=== PATIENT | female | born 1995 | race Caucasian/White ===

== ENCOUNTER → 2018-02-22 | Outpatient (CLI) | payer OTHER ==
[2018-02-22 16:00] LABS: DHEA Sulfate 478.9 ug/dL (26.0-430.0); Progesterone 1.3 ng/mL
[2018-02-22 16:03] LABS: Insulin Level 12.7 mIU/mL (3.0-25.0); Vitamin D 25 Hydroxy 68.4 ng/mL (30.0-100.0)
[2018-02-22 16:08] LABS: C Reactive Protein, High Sens 0.27 mg/L (0.000-3.000)
[2018-02-23 03:20] LABS: Albumin 4.6 g/dL (3.80-4.90); Albumin/Globulin Ratio 2.42 (1.20-2.10); Anion Gap 7.8 mmol/L (4.00-12.00); Calcium 9.5 mg/dL (8.7-10.3); Carbon Dioxide 27.2 mmol/L (21.6-31.8); Globulin 1.9 g/dL (1.6-3.3); LDL Cholesterol,Calculated 70.6 mg/dL (0.0-131.0); Potassium 4.1 mmol/L (3.5-5.5); Total Bilirubin 0.7 mg/dL (0.2-1.2); Total Protein 6.5 g/dL (6.2-8.2); VLDL Calculation 25.4 mg/dL (5.00-40.00)
== END ==
LOC: LABWHC1 09:43
PROVIDERS: ATTEND Specialist
DX: D50.9 Iron deficiency anemia, unspecified (principal); E06.3 Autoimmune thyroiditis; D51.9 Vitamin B12 deficiency anemia, unspecified; E04.9 Nontoxic goiter, unspecified; E34.9 Endocrine disorder, unspecified; G44.009 Cluster headache syndrome, unspecified, not intractable; E78.1 Pure hyperglyceridemia; E27.40 Unspecified adrenocortical insufficiency; E03.9 Hypothyroidism, unspecified; E88.81 Metabolic syndrome and other insulin resistance; K58.0 Irritable bowel syndrome with diarrhea; K90.49 Malabsorption due to intolerance, not elsewhere classified; N92.6 Irregular menstruation, unspecified; E28.2 Polycystic ovarian syndrome; E07.9 Disorder of thyroid, unspecified; E55.9 Vitamin D deficiency, unspecified; R63.5 Abnormal weight gain; R11.2 Nausea with vomiting, unspecified; R53.83 Other fatigue; R79.9 Abnormal finding of blood chemistry, unspecified; R79.82 Elevated C-reactive protein (CRP); R19.7 Diarrhea, unspecified; T78.1XXA Other adverse food reactions, not elsewhere classified, initial encounter; R10.9 Unspecified abdominal pain; R10.13 Epigastric pain; Z79.01 Long term (current) use of anticoagulants
CPT/HCPCS: 36415; 80053; 80061; 82306; 82533; 82627; 82670; 82728; 83525; 84144; 84439; 84443; 84481; 86141

== ENCOUNTER → 2018-05-22 | Outpatient (CLI) | payer OTHER ==
[2018-05-22 16:26] LABS: ALT 21 U/L (8-44); AST 22 U/L (13-35); Alkaline Phosphatase 59 U/L (41-126); Calcium 9.6 mg/dL (8.7-10.3); Carbon Dioxide 27.2 mmol/L (21.6-31.8); Chloride 107 mmol/L (96-109); Cholesterol 134 mg/dL (0-200); Glucose 90 mg/dL (70-110); Potassium 4.1 mmol/L (3.5-5.5); Sodium 141 mmol/L (135-145); Total Bilirubin 0.9 mg/dL (0.3-1.2); Total Protein 6.6 g/dL (6.2-8.2)
[2018-05-22 16:30] LABS: Progesterone 1.3 ng/mL
[2018-05-22 16:31] LABS: C Reactive Protein, High Sens 0.3 mg/L (0.000-3.000); Insulin Level 7.6 mIU/mL (3.0-25.0)
[2018-05-22 19:23] LABS: Hemoglobin A1C 4.6 % (4.0-6.0)
== END | disposition home or self-care (01) ==
LOC: LABWHC1 09:05
PROVIDERS: ATTEND Specialist
DX: E06.3 Autoimmune thyroiditis (principal); R10.13 Epigastric pain; R79.9 Abnormal finding of blood chemistry, unspecified; R79.89 Other specified abnormal findings of blood chemistry; T78.1XXA Other adverse food reactions, not elsewhere classified, initial encounter; D50.9 Iron deficiency anemia, unspecified; D51.9 Vitamin B12 deficiency anemia, unspecified; R19.7 Diarrhea, unspecified; E04.9 Nontoxic goiter, unspecified; G44.009 Cluster headache syndrome, unspecified, not intractable; E78.1 Pure hyperglyceridemia; E27.40 Unspecified adrenocortical insufficiency; E03.9 Hypothyroidism, unspecified; R73.01 Impaired fasting glucose; K58.0 Irritable bowel syndrome with diarrhea; K90.49 Malabsorption due to intolerance, not elsewhere classified; E28.2 Polycystic ovarian syndrome; E55.9 Vitamin D deficiency, unspecified; R63.5 Abnormal weight gain; R53.83 Other fatigue; R79.82 Elevated C-reactive protein (CRP); N92.6 Irregular menstruation, unspecified; R11.2 Nausea with vomiting, unspecified; Z79.890 Hormone replacement therapy; Z91.018 Allergy to other foods
CPT/HCPCS: 36415; 80053; 80061; 82040; 82533; 82670; 83036; 83090; 83525; 84144; 84270; 84403; 84439; 84443; 84481; 86141

== ENCOUNTER 2018-11-10 13:44 | Emergency (ER) | payer OTHER ==
[2018-11-10 14:26] VITALS: RESP 18; TEMP 98.1
[2018-11-10] MEDS ORDERED: METOCLOPRAMIDE 5 MG/ML 2 ML VIAL IVP STA (15:48)
[2018-11-10] MEDS ORDERED: SODIUM CHLORIDE 0.9% 1,000 ML IV STA (15:48)
[2018-11-10] MEDS ORDERED: diphenhydrAMINE 50 MG/ML 1 ML VIAL IVP STA (15:48)
--- NOTE | 2018-11-10 16:34 | CT ---
EXAMINATION TYPE: CT brain wo con DATE OF EXAM: 11/10/2018 COMPARISON: None HISTORY: 23-year-old female with headache, Migraine x 2 weeks. TECHNIQUE: Examination was done in axial plane without intravenous contrast. Coronal and sagittal r econstructions performed. CT DLP: 1074.4 mGycm Automated exposure control for dose reduction was used. FINDINGS: There is no evidence of acute intracranial hemorrhage, acute ischemic changes, mass, mass-effect, or extra-axial fluid collection. There is no effacement of cerebral sulci or basal subarachnoid cister ns. There is no hydrocephalus. There is no midline shift. Dixon-white matter distinction is preserv ed. Paranasal sinuses and mastoid air cells are pneumatized. Orbits and globes are intact. IMPRESSION: No acute intracranial abnormality seen.
[2018-11-10] MEDS ORDERED: SUMAtriptan SUCCINATE 6 MG/0.5 ML VIAL SQ STA (16:41)
[2018-11-10] MEDS ORDERED: KETOROLAC 30 MG/ML 1 ML VIAL IVP STA (16:41)
--- NOTE | 2018-11-10 16:47 | ED ---
General Adult HPI - General Chief complaint: Headache Stated complaint: Migraine Time Seen by Provider: 11/10/18 15:36 Source: patient, RN notes reviewed Mode of arrival: ambulatory Limitations: no limitations - History of Present Illness Initial comments: 23-year-old female presents to the emergency department for a chief complaint of headache. Patient states she has had its headache for about 2 weeks. States it seems to be getting somewhat worse as time goes on. States it is a band across her forehead. States she was seen by urgent care and given a shot of pain medication that helped at the time. States that she was then seen by her primary care provider started on a beta naina. Patient does admit to light sensitivity. She admits to nausea that started this morning but denies vomiting. Denies any fevers or chills. Denies maximal intensity at onset. Denies any neck stiffness. Patient has no other complaints at this time includin g shortness of breath, chest pain, abdominal pain, nausea or vomiting, or visual changes. - Related Data Home Medications Medication Instructions Recorded Confirmed Mari 24 Fe 1 PO DAILY 08/26/14 08/26/14 Allergies Allergy/AdvReac Type Severity Reaction Status Date / Time No Known Allergies Allergy Verified 11/10/18 14:22 Review of Systems ROS Statement: Those systems with pertinent positive or pertinent negative responses have been documented in the HPI. ROS Other: All systems not noted in ROS Statement are negative. Past Medical History Past Medical History: No Reported History History of Any Multi-Drug Resistant Organisms: None Reported Past Surgical History: No Surgical Hx Reported Past Psychological History: Unable to Obtain Smoking Status: Never smoker Past Alcohol Use History: None Reported Past Drug Use History: None Reported General Exam Limitations: no limitations General appearance: alert, in no apparent distress Head exam: Present: atraumatic, normocephalic, normal inspection Eye exam: Present: normal appearance, PERRL, EOMI. Absent: scleral icterus, conjunctival injection, periorbital swelling ENT exam: Present: normal exam, mucous membranes moist Neck exam: Present: normal inspection, full ROM. Absent: tenderness, meningismus, lymphadenopathy Respiratory exam: Present: normal lung sounds bilaterally. Absent: respiratory distress, wheezes, rales, rhonchi, stridor Cardiovascular Exam: Present: regular rate, normal rhythm, normal heart sounds. Absent: systolic murmur, diastolic murmur, rubs, gallop, clicks Neurological exam: Present: alert, oriented X3, CN II-XII intact, normal gait, other (GCS 15) Expanded Patient oriented to: Present: person, place, time Speech: Present: fluid speech Cranial nerves: EOM's Intact: Normal, Gag Reflex: Normal, Tongue Deviation: Normal, Nystagmus: Normal, Facial Sensation: Normal Cerebellar function: Finger to Nose: Normal Upper motor neuron: Pronator Drift: Normal Sensory exam: Upper Extremity Light Touch: Normal, Upper Extremity Pin Prick: Normal, Lower Extremity Light Touch: Normal, Lower Extremity Pin Prick: Normal Motor strength exam: RUE: 5, LUE: 5, RLE: 5, LLE: 5 Eye Response: (4) open spontaneously Motor Response: (6) obeys commands Verbal Response: (5) oriented [place] Total: 15 Psychiatric exam: Present: normal affect, normal mood Course Vital Signs 11/10/18 14:22 Temperature 98.1 F Pulse Rate 54 L Respiratory 18 Rate Blood Pressure 140/83 O2 Sat by Pulse 98 Oximetry Medical Decision Making - Medical Decision Making Any 3-year-old female presents for chief coming of headache. Patient has had a headache for about 2 weeks into Z worsening as time goes on. States it is a band across her forehead. Patient has had some nausea as well as some photophobia. She was recently started on a beta naina by her primary care provider. No history of maximal intensity at onset. Fevers or chills. On presentation today patient rates her pain as an 8 out of 10. Patient's vitals are stable. Exam is unremarkable. There are no neurologic deficits. HCG was obtained which was negative. No acute intracranial abnormality was seen on computed tomography scan. Patient was given a migraine cocktail and pain decreased from an 8 to a 2. Patient feeling much better at this time. Agreeable to discharge home with follow-up to primary care. Recommended that if this continues she may need to see a neurologist. Patient will return here she has any worsening symptoms. Discussed with attending provider. - Lab Data Lab Results 11/10/18 Range/Units 15:50 Urine HCG, Qual Not Detected (Not Detectd) Disposition Clinical Impression: Headache Disposition: HOME SELF-CARE Condition: Good Instructions (If sedation given, give patient instructions): Acute Headache (ED) Additional Instructions: Please take Motrin and Tylenol for pain. Please follow-up with primary care in 1-2 days. Please return here to the emergency department if your having any worsening symptoms. Is patient prescribed a controlled substance at d/c from ED?: No Referrals: Shakila Mireles MD [STAFF PHYSICIAN] - 1-2 days Time of Disposition: 17:22
[2018-11-10 17:31] VITALS: BP 121/74; PULSE 63
== END 2018-11-10 17:30 | disposition home or self-care (01) ==
LOC: EC 13:44
DX: R51 Headache (principal); R11.0 Nausea; H53.149 Visual discomfort, unspecified; Z32.02 Encounter for pregnancy test, result negative
CPT/HCPCS: 81025; 70450; 99284; 96374; 96375 ×2; 96361; 96372; J3030; J1200; J2765; J1885

== ENCOUNTER → 2019-08-22 | Outpatient (CLI) | payer OTHER ==
[2019-08-22 16:49] LABS: African American GFR (CKD) 103.7 (60.0-200.0); Albumin 4.5 g/dL (3.80-4.90); Albumin/Globulin Ratio 2.14 (1.60-3.17); BUN/Creat Ratio 12.22 Ratio (12.00-20.00); Calcium 9.4 mg/dL (8.7-10.3); Chol/HDL Ratio 3.59; Globulin 2.1 g/dL (1.6-3.3); LDL Cholesterol,Calculated 92.8 mg/dL (0.0-131.0); Non-African American GFR(CKD) 89.5 (60.0-200.0); Potassium 3.9 mmol/L (3.5-5.5); Total Bilirubin 0.6 mg/dL (0.2-1.2); Total Protein 6.6 g/dL (6.2-8.2); VLDL Calculation 21.2 mg/dL (5.00-40.00)
[2019-08-22 16:52] LABS: Insulin Level 10.9 mIU/mL (3.0-25.0)
[2019-08-22 16:57] LABS: Estradiol 34.8 pg/mL; T4, Free (Free Thyroxine) 1.2 ng/dL (0.80-1.80)
[2019-08-22 17:01] LABS: Progesterone 0.8 ng/mL
== END | disposition home or self-care (01) ==
LOC: LABWHC1 07:49
PROVIDERS: ATTEND Specialist
DX: Z13.21 Encounter for screening for nutritional disorder (principal); N92.6 Irregular menstruation, unspecified; K58.0 Irritable bowel syndrome with diarrhea; R10.9 Unspecified abdominal pain; R73.09 Other abnormal glucose; D50.9 Iron deficiency anemia, unspecified; E06.3 Autoimmune thyroiditis; D51.9 Vitamin B12 deficiency anemia, unspecified; E04.9 Nontoxic goiter, unspecified; G44.009 Cluster headache syndrome, unspecified, not intractable; E87.1 Hypo-osmolality and hyponatremia; E27.40 Unspecified adrenocortical insufficiency; E28.2 Polycystic ovarian syndrome; E07.9 Disorder of thyroid, unspecified; E03.9 Hypothyroidism, unspecified; R73.01 Impaired fasting glucose; R63.5 Abnormal weight gain; R19.7 Diarrhea, unspecified; K90.49 Malabsorption due to intolerance, not elsewhere classified; R79.82 Elevated C-reactive protein (CRP); E53.9 Vitamin B deficiency, unspecified; E83.9 Disorder of mineral metabolism, unspecified; R53.83 Other fatigue; Z79.890 Hormone replacement therapy; E78.1 Pure hyperglyceridemia; Z91.018 Allergy to other foods
CPT/HCPCS: 36415; 80053; 80061; 82306; 82670; 83525; 84144; 84439; 84443; 84481; 86628

== ENCOUNTER → 2019-12-10 | Outpatient (CLI) | payer OTHER ==
[2019-12-10 15:36] LABS: Insulin Level 11.4 mIU/mL (3.0-25.0)
[2019-12-10 15:50] LABS: Estradiol 56.7 pg/mL; T4, Free (Free Thyroxine) 1.2 ng/dL (0.80-1.80)
[2019-12-10 20:23] LABS: African American GFR (CKD) 103.7 (60.0-200.0); Albumin 4.9 g/dL (3.80-4.90); Albumin/Globulin Ratio 2.04 (1.60-3.17); Anion Gap 10.6 mmol/L (4.00-12.00); BUN/Creat Ratio 13.33 Ratio (12.00-20.00); Carbon Dioxide 27.4 mmol/L (21.6-31.8); Chol/HDL Ratio 3.73; Globulin 2.4 g/dL (1.6-3.3); LDL Cholesterol,Calculated 76.2 mg/dL (0.0-131.0); Non-African American GFR(CKD) 89.5 (60.0-200.0); Potassium 4.1 mmol/L (3.5-5.5); Total Protein 7.3 g/dL (6.2-8.2); VLDL Calculation 32.8 mg/dL (5.00-40.00)
== END | disposition home or self-care (01) ==
LOC: LABWHC1 08:13
PROVIDERS: ATTEND Specialist
DX: E06.3 Autoimmune thyroiditis (principal); D51.9 Vitamin B12 deficiency anemia, unspecified; R10.9 Unspecified abdominal pain; R73.09 Other abnormal glucose; Z91.018 Allergy to other foods; D50.9 Iron deficiency anemia, unspecified; E04.9 Nontoxic goiter, unspecified; G44.009 Cluster headache syndrome, unspecified, not intractable; Z79.890 Hormone replacement therapy; E78.1 Pure hyperglyceridemia; E27.40 Unspecified adrenocortical insufficiency; E03.9 Hypothyroidism, unspecified; R73.01 Impaired fasting glucose; K58.0 Irritable bowel syndrome with diarrhea; E28.2 Polycystic ovarian syndrome; E07.9 Disorder of thyroid, unspecified; E55.9 Vitamin D deficiency, unspecified; R63.5 Abnormal weight gain; R79.82 Elevated C-reactive protein (CRP); R79.9 Abnormal finding of blood chemistry, unspecified; R53.83 Other fatigue; K90.49 Malabsorption due to intolerance, not elsewhere classified; N92.6 Irregular menstruation, unspecified
CPT/HCPCS: 36415; 80053; 80061; 82670; 83525; 84144; 84439; 84443; 84481

== ENCOUNTER → 2024-04-22 | Outpatient (CLI) | payer BC ==
--- NOTE | 2024-04-23 09:13 | US ---
EXAMINATION TYPE: US thyroid st tissue head/neck DATE OF EXAM: 04/22/2024 COMPARISON: NONE CLINICAL INDICATION: Female, 29 years old with history of E04.2 NONTOXIC MULTINODULAR GOITER; Hashimo to's, not on meds anymore but may restart, no symptoms TECHNIQUE: Grayscale and color Doppler imaging of the thyroid gland. FINDINGS: GLAND SIZE: Right Lobe: 5.0 x 1.0 x 1.3 cm Overall Parenchyma: homogeneous Left Lobe: 5.3 x 1.5 x 1.6 cm Overall Parenchyma: homogeneous Isthmus Thickness: 0.3 cm NODULES RIGHT: # of nodules measured on right: 0 LEFT: # of nodules measured on left: 0 ISTHMUS: # of nodules measured in the isthmus: 0 Bilateral neck scanned, no evidence of lymphadenopathy. IMPRESSION: 1. No suspicious thyroid nodules 2017 ACR TI-RADS LEVEL: TI-RADS 1 - BENIGN: No FNA *Highest TI-RADS level nodule reported [email or web address] [facility], , 04/23/2024 9:11 AM
== END | disposition home or self-care (01) ==
LOC: RADUSWWP 16:18
PROVIDERS: ATTEND Internal Medicine
DX: E04.2 Nontoxic multinodular goiter (principal); E06.3 Autoimmune thyroiditis
CPT/HCPCS: 76536